=== PATIENT | female | born 1985 | race Caucasian/White ===

== ENCOUNTER → 2018-01-13 12:12 | Outpatient (CLI) | payer MEDICAID, SELFPAY ==
[2018-01-13 13:33] LABS: Free T3 2.6 pg/mL (2.18-3.98); T4 Free Direct 1.04 ng/dL (0.76-1.46)
== END ==
PROVIDERS: Visit Provider Obstetrics & Gynecology
DX: E03.9 Hypothyroidism, unspecified (principal)
CPT/HCPCS: 36415; 84439; 84443; 84481

== ENCOUNTER → 2018-08-14 13:24 | Outpatient (CLI) | payer MEDICAID, SELFPAY ==
[2018-08-20 12:21] LABS: HPV HC, High Risk Negative (Negative)
== END ==
PROVIDERS: Visit Provider Obstetrics & Gynecology
DX: Z12.4 Encounter for screening for malignant neoplasm of cervix (principal)
CPT/HCPCS: 87624; 88175; G0145

== ENCOUNTER 2019-10-11 05:54 | Day surgery (SDC) | payer MEDICAID, SELFPAY ==
[2019-10-04 17:24] LABS: Hematocrit 40.3 % (37-47); Hemoglobin 13.6 g/dL (12.0-15.0); Mean Corp Hgb Conc 33.7 g/dL (32-36); Mean Corpuscular Hgb 29.8 pg (27.0-32.0); Mean Corpuscular Volume 88.4 fL (81-99); Mean Platelet Vol. 10.1 fl (6.2-12.0); Platelet Count 309 K/mm3 (150-450); RBC Distribution Width CV 12.4 % (11.6-14.6); Red Blood Count 4.56 M/mm3 (4.2-5.4); White Blood Count 9.9 K/mm3 (4.4-11.0)
[2019-10-04 17:37] LABS: Prothrombin Time (Protime)PT. 12.9 SECONDS (11.7-14.9)
[2019-10-04 17:38] LABS: Partial Thromboplast Time 26.4 Seconds (24.1-36.2)
[2019-10-04 17:56] LABS: Internal QC Validated? YES +Cl - CLEAR BKGD; Pregnancy, Serum, hCG Quali. NEGATIVE Negative
[2019-10-04 18:00] LABS: Creatinine, Serum 0.81 mg/dL (0.55-1.02); EST Glomerular Filtration Rate 84 mL/min (>60); Est Glom Filt Rate - Afr Amer 102 mL/min (>60)
--- NOTE | 2019-10-09 10:30 | PCM.HP.BLA ---
History and Physical Date of Admission: 10/11/19 Surgical History and Physical Chrystal Beckford, a 34 year old female 1 0 1 1 2, presents for RAVH/BSO on October 11, 2019 at 7:30. -- Severe Pelvic Pain, Endometriosis -- Lower back pain that started after . Use of Roya after 6 mo Lupron for Endometriosis. Pictures that pt gave Dr Fletcher from her cholecystectomy showed her endometriosis. Reports she has had an increase in her pain/discomfort with it being pretty much all the time, instead of just around her menses, and pain with intercourse with a lot of pressure and pain on her (L) side. Had previously taken Ibuprofen 800 mg or Tramadol for the severe pain. MEDICATIONS HISTORY: Current medications prescribed by our practice are: 1. Seasonique 0.15 mg-30 mcg (84)/10 mcg(7) tablets,3 month dose pack, One pill by mouth once a day 2. Synthroid 75 mcg tablet, One pill by mouth once a day 3. tramadol 50 mg tablet, two tabs PO q 6 hours prn for severe pain Patient is also takin. lisinopril 20 mg tablet, One table by mouth once daily 2. metoprolol succinate ER 50 mg tablet,extended release 24 hr, One tablet by mouth once daily ALLERGIES: No Known Drug Allergies Infections - Chicken pox, yeast inf and HX OF ABNORMAL PAPs Illnesses - infertility and thyroid dysfunction Accidents - no injuries of consequence Hospitalizations - see surgery and Childbirth Stage 4 endometriosis; Review of Systems: GENERAL - Denies fever, or chills SKIN - Denies skin changes EYES - Denies visual changes EARS - Denies difficulty hearing NOSE - Denies nasal congestion or bleeding MOUTH - Denies sore throat or difficulty swallowing NECK - Denies pain or swelling RESPIRATORY - Denies shortness of breath or wheezing CARDIOVASCULAR - Denies palpitations or chest pain GASTROINTESTINAL - Denies nausea, vomiting, diarrhea, constipation GENITOURINARY - Denies dysuria, frequency of urination, incontinence of urine MUSCULOSKELETAL - Denies joint or muscle pain NEUROLOGICAL - Denies localized numbness or weakness PSYCHIATRIC - Denies depression or anxiety ENDOCRINE - Denies heat or cold intolerance, weight loss or gain HEMATO-IMMUNOLOGIC - Denies excesive bleeding with cuts SOCIAL HISTORY: Alcohol Use - RARELY Smoking - Never Diet - moderate, balanced diet and caffeine < 2 drinks per day Lifestyle - moderate stress lifestyle and Exercise - none Seat Belt Use - always Employer - Homemaker Illicit Drug Use - denies use of street drugs Sexual Activity - Residence - owns a home and lives with Place of - [place] Hours Worked - 40 hours per week Spouse-Sig Other Name - Tejas Spouse-Sig Other Occupation - [employer]- manager of administration/maintenance Spouse-Sig Other Phone No - [phone] Children Name(s) - David Cortez (twins 01/30/16) Control - [facility] FAMILY HISTORY: la MENSTRUAL HISTORY: LMP Known?- DefiniteAmount/Duration - 3 days, Regularity - spotting, Frequency - 28-30 days, LMP - 08/25/19, Age Onset Menarche - 10 PAST PREGNANCIES: Total Pregnancies - 2; Full Term Pregnancies - 1; Premature - 0; Abortions, Induced - 0; Abortions, Spontaneous - 1; Ectopics - 0; Multiple Births - 1; Living Children - 2 SURGICAL HISTORY: 1. 10/09/2017 Cholecystectomy ; Dr. Agee 2. 12/25/2014 D and C ; - sab 3. 01/31/2015 Laparoscopy ; - explore/clean out endometriosis/drained ovarian cyst 4. 01/30/2016 primary ; Dr Anmol Fletcher PHYSICAL EXAM BP- 134/100 Sitting, Right arm, large cuff Temp- 98.0 Taken Orally Weight- 232.81131 lbs Height- 63 inch BMI:41.18 CONSTITUTIONAL - NAD, well nourished, and well developed SKIN - No rash, lesions, or ulcers HEENT - Normocephalic, PERRLA, EOMI NECK - No nodes, no nuchal rigidity and thyroid normal size and texture LYMPH NODES - Palpation of lymph nodes in neck and groins within normal limits LUNGS - CTA x2 without wheezes, crackles or rales CARDIAC - Regular rate and rhythm without rubs, murmurs, or gallops BREAST - No dominant masses, no tenderness, no axillary adenopathy, no nipple discharge, no skin changes ABDOMEN - Without hepatosplenomegaly, distention, masses, rebound, or guarding; normal bowel sounds; no hernias EXTREMITIES - No edema or calf tenderness NEUROLOGICAL - Cranial nerves II-XII grossly intact PSYCHIATRIC - A and O to time, place, person, mood and affect External Genital Vagina - non-tender without lesions Urethra/Urethral Meatus - non-tender Bladder - non-tender Vagina - vaginal gonzales are pink and moist without loss of rugae and no evidence of atropy Cervix - without cervical motion tenderness and has normal size and features without evident lesions Uterus - 5-6 cm in size, mobile and nontender Adnexa - clear without massess or tenderness ASSESSMENT/PLAN: Endometriosis Of Pelvic Peritoneum Takes occasional tramadol for strong pain. L/S proven endometriosis and failed Lupron now pain nearly entire cycle. Wants to proceed with RAVH/BSO. 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
[2019-10-11] VITALS (14 sets, daily range): BP systolic 99–139; BP diastolic 61–82; PULSE 63–99; RESP 16–18; TEMP 36.6–37; O2SAT 93–99; BMI 41.2
[2019-10-11 06:30] LABS: Internal QC Validated? YES +Cl - CLEAR BKGD; Pregnancy, Urine Negative Negative
[2019-10-11] MEDS: Lactated Ringers 1,000 ML 100 ML IV ×2 (06:52→06:57)
[2019-10-11] MEDS: Ropivacaine 0.5% 30 ML Vial (07:05)
--- NOTE | 2019-10-11 07:30 | HYST_PTH ---
PATIENT: JANELLE ACHARYA LOC: [facility] [place][id number] AGE/SX: 34/F ROOM: RE10/11/[address]: Dr. Tejas Escobedo MD : [id number] BED: DIS: 10/12/2019 SPEC #: [id number] RECD: 10/11/19 10:26 STATUS: NATALIA RONEL #: [id number] EBONY: 10/11/19 07:[address]: Tejas Escobedo DEPT: SURGICAL PATHOLOGY RECD BY: Filippo Tracy ENTERED: 10/11/19 11:16 SP TYPE: HYSTERECT OTHR DR: Jennifer Olivia, CLINICAL PHARMACOLOGIST-C Tissues: Uterus, NOS Procedures: Surgery Specimen Level V HEADER OPERATION: Robotic assisted vaginal hysterectomy, bilateral salpingo PRE-OP DIAGNOSIS: Severe pelvic pain, endometriosis TISSUE SUBMITTED: Uterus, cervix, bilateral fallopian tubes, bilateral ovaries MICROSCOPIC DIAGNOSIS Uterus, hysterectomy: Cervix - nabothian cysts and minimal chronic inflammation. Endometrium - proliferative endometrium. Myometrium - adenomyosis and leiomyoma. Right ovary - follicular and corpus luteal cysts. Left ovary - follicular cysts and corpora albicantia. Right and left fallopian tubes - no pathologic change. AM:marybel 10/12/19 MICROSCOPIC DESCRIPTION Slides are reviewed. GROSS DESCRIPTION Received in fixative is one container labeled with the patient's name and designated uterus. The specimen consists of a uterus with attached cervix and attached right and left fallopian tubes and ovaries. The uterus with cervix measures 8 x 6 x 4 cm and weighs 79.4 gm. The ectocervix is oval in contour and grossly unremarkable. The endocervical canal measures 3.3 cm in length and is grossly unremarkable. The triangular endometrial cavity measures 4 x 3.5 cm. The velvety, light khan endometrium measures up to 0.2 cm in thickness. The myometrium measures 2 cm in average thickness and contains a single rubbery nodule in the anterior wall measuring 0.7 cm in greatest diameter. The right and left ovaries are similar in appearance having crinkled external surfaces. The right ovary measures 3 x 2.5 x 1.5 cm and sections reveal a blood-filled cyst measuring 2.2 cm in greatest diameter. The right and left fallopian tubes are similar in appearance with average lengths of 7 cm and average diameters of 0.8 cm. No tubo-ovarian adhesions are seen. The left ovary measures 3 x 2.5 x 2 cm and contains multiple cysts ranging in size from 0.2 to 0.5 cm and containing clear to bloody fluid. Psychiatric Cns sections are submitted in 11 cassettes as follows: 1 - anterior cervix, 2 - posterior cervix, 3-5 - anterior endometrium/myometrium, 6 & 7 - posterior endometrium/myometrium, 8 & 9 - right ovary and fallopian tube, 10 & 11 - left ovary and fallopian tube. / AM:marybel 10/11/19 TC:1 CPT: 91448
--- NOTE | 2019-10-11 07:37 | PCM.OPRPT ---
Report of Operation Date of Procedure: 10/11/19 Pre-Operative Diagnosis: Severe Pelvic Pain, Endometriosis Post-Operative Diagnosis: Severe Pelvic Pain, Endometriosis, Adhesions Surgery/Procedure Performed:: Robotic Assisted Vaginal Hysterectomy and Bilateral Salpingo-Oophorectomy, Lysis of Adhesions Description of Surgical Findings:: 8 cm uterus with normal-appearing fallopian tubes and ovaries except for a left 4 cm ovarian endometrioma and dense adhesions of the left fallopian tube and ovary to the left pelvic sidewall. Adhesions of the omentum to the anterior abdominal wall and to the right pelvic sidewall. Right fallopian tube and ovary appeared normal except for adhesions of the right ovary to the right pelvic sidewall. global director air and climate change: Rosemarie Herzog Type of Anesthesia:: General - Endotracheal Anesthesiologist: Niles Artis Drains: Garcia to straight drain Estimated Blood Loss (mL): Minimal Fluids Replaced: Crystalloid Description of Procedure: Surgeon: Tejas Escobedo MD, FACOG Indication: This is a 34 year old patient who has been having problems with severe pelvic pain with known endometriosis. Conservative measures have not been helpful. The patient has been counseled regarding the risks, benefits and alternatives of this procedure including the possibility of bleeding, infection, and injury to surrounding structures such as bowel bladder and all questions were answered. She understands that with a BSO she will need to be on HRT for an indefinite period of time. Procedure: Pt taken to the operating room where, after induction of general anesthesia, the patient was prepped and draped in the usual sterile fashion and placed on a non-slip Huggy-u-vac device. Trendelenburg test was satisfactory. Bladder was drained of urine with a Garcia catheter which was left in place. Anterior cervix grasped and cervix was dilated to about 3-4 mm. Uterus sounded to 8 cms. 0-Vicryl suture was placed at the 3:00 and 9:00 position of the cervix. A small Advincula Hyperion Developer Uterine Manipulator was then placed in the uterus and attention was turned to the laparoscopic portion of the procedure. Ropivocaine 0.5% was injected approximately 2-3 cm superior to the umbilicus and an 8 mm robotic camera port was introduced directly with intraperitoneal placement confirmed with CO2 insufflation. 8 mm robotic side ports were introduced under direct visualization approximately 11 cm lateral and 2 cm inferior to the umbilical port. A 5 mm left upper quadrant port was introduced and airseal insufflation with CO2 was started. The above findings were noted. Robot was docked without difficulty and attention turned to the robotic portion of the procedure. Approximately 30 cc of Ropivicaine was used. Omental adhesions were ligated with cautery and scissors and bilateral infundibulopelvic ligaments were ligated with 35 lee bipolar coagulation to the level of the round ligament after freeing up both ovaries and tubes from adhesions both sharply and bluntly. The posterior aspect of the cervix was identified and then opened for about 1 cm using 25 watt monopolar cautery identifying the uterine manipulating device which had been placed vaginally. Bladder flap was opened and divided to the level of the round ligaments using monopolar cautery. Progressive bites were then ligated on each side of the cervix with 35 lee bipolar cautery to the uterine arteries. The anterior vaginal mucosa was entered and cervix circumscribed with monopolar cautery. Uterus and attached tubes and ovaries were removed through the vagina. Vaginal cuff was closed first with 0-Vicryl Nirali stitches placed at each angle followed by closure of the mid-cuff with 0-Monocryl V-lock suture in two layers. Pelvis was copiously irrigated with saline and the right ureter was noted to peristalse. Some Dary was placed across the vaginal cuff to help with postoperative hemostasis due to oozing from the adhesions which had been taken down. Robot was undocked and trocars were removed with as much gas as possible. Incisions were closed with 4-0 Monocryl subcuticular sutures and incisions covered with steri-strips. The patient tolerated the procedure well and was taken to the recovery room in satisfactory condition. Sponge, instruments and needle counts were all correct. There were no apparent complications of the surgery. Cefotan 2 gms IV was given prior to the procedure. Estimated Blood Loss: Minimal Specimen to Pathology: Uterus and bilateral fallopian tubes and ovaries Grafts/Implants Used: None - Complications None - Admit VTE Documentation VTE Present on Admission: Yes VTE Mechan Device Prophylaxis: SCD's VTE Pharm Prophylaxis ordered?: Yes
--- NOTE | 2019-10-11 09:33 | DCINST_ITS ---
Discharge Diet: No Restrictions Discharge Activity: Return to Normal Activity, May Not Drive - while taking narcotic pain medications., May Shower, May Take a Tub Bath May resume sexual activity in: 6-8 weeks Call your doctor if your incision/area has: Continuous Slow Oozing, Sudden Inc reased Bleeding, Increased Pain/ Swelling, Increased Redness, Foul Smelling Discharge Call your doctor if you observe: Fever of 101 or Higher, Inability to urinate, Inability to have a bowel movement, Using more than one pad per hour Additional Instructions: Nothing in the vagina for 6 weeks. Allergies/Adverse Reactions: Allergies No Known Allergies Allergy (Verified 10/11/19 06:26) Medications to take at Discharge levothyroxine 88 mcg tablet 75 mcg PO DAILY tab 10/07/17 Lisinopril [Zestril] 20 mg PO QHS 10/04/19 Metoprolol Succinate [Toprol Xl] 50 mg PO QHS 10/04/19 Venlafaxine XR [Effexor Xr] 150 mg PO QHS 10/04/19 Docusate Sodium [Colace] 100 mg PO BID PRN PRN #60 cap 10/11/19 RX: Estradiol 2 mg PO DAILY #100 tab 10/11/19 RX: Oxycodone [Oxyir] 5 mg PO Q6H PRN PRN 7 Days #14 tab 10/11/19 The following prescriptions were given: Docusate Sodium [Colace] 100 mg PO BID PRN PRN #60 cap PRN Reason: Constipation Transmission [facility] RX: Estradiol 2 mg PO DAILY #100 tab Transmission [facility]: [facility] RX: Oxycodone [Oxyir] 5 mg PO Q6H PRN PRN 7 Days #14 tab PRN Reason: Pain Score 6-10/10 Transmission Status: [facility] Primary Care Physician: Jennifer Olivia NP-C [Primary Care Provider] - Test Results: Test results from this visit will be discussed in further detail at your follow- up appointment, if applicable. Please Follow Up With: Tejas Escobedo MD When: 2 to 3 weeks
[2019-10-11] MEDS: Dextrose 5%-Lactated Ringers 1,000 ML 150 ML IV (11:47)
[2019-10-11] MEDS: HYDROmorphone 1 MG/ML Syringe 0.5 MG IV (12:49)
[2019-10-11] MEDS: oxyCODONE 5 MG Tablet PO ×2 (16:57→21:23)
[2019-10-11] MEDS: Estrogens,Conj. 1.25 MG Tablet PO (16:59)
[2019-10-11] MEDS: Enoxaparin 30 MG/0.3 ML Syringe SC (18:10)
[2019-10-11] MEDS: Ketorolac 30 MG/ML Syringe IV ×2 (18:11→23:41)
[2019-10-11] MEDS: Venlafaxine XR 150 MG Capsule PO (21:24)
[2019-10-11] MEDS: Lisinopril 20 MG Tablet PO (21:24)
[2019-10-11] MEDS: Metoprolol(XL)Succ 50 MG Tablet PO (21:24)
[2019-10-11] MEDS: 0.9% Saline Lock 10 ML Syringe IV (23:44)
[2019-10-12 03:06] VITALS: BP 130/75; PULSE 84; RESP 16; TEMP 36.6; O2SAT 97
[2019-10-12] MEDS: oxyCODONE 5 MG Tablet PO ×2 (03:20→09:49)
[2019-10-12] MEDS: Levothyroxine 75 MCG Tablet PO (05:39)
[2019-10-12] MEDS: Ketorolac 30 MG/ML Syringe IV (05:40)
[2019-10-12] MEDS: 0.9% Saline Lock 10 ML Syringe IV (05:48)
[2019-10-12 07:46] VITALS: O2SAT 96
[2019-10-12 08:05] LABS: Hematocrit 35.4 % (37-47); Hemoglobin 11.5 g/dL (12.0-15.0); Mean Corp Hgb Conc 32.5 g/dL (32-36); Mean Corpuscular Volume 89.4 fL (81-99); Mean Platelet Vol. 10.8 fl (6.2-12.0); Platelet Count 272 K/mm3 (150-450); RBC Distribution Width CV 12.8 % (11.6-14.6); Red Blood Count 3.96 M/mm3 (4.2-5.4); White Blood Count 13.5 K/mm3 (4.4-11.0)
[2019-10-12 08:43] LABS: Creatinine, Serum 0.85 mg/dL (0.55-1.02); EST Glomerular Filtration Rate 81 mL/min (>60); Est Glom Filt Rate - Afr Amer 98 mL/min (>60); Estimated Creatinine Clearance 72.37 ml/min
--- NOTE | 2019-10-12 08:44 | PCM.PN.OB ---
Subjective: Patient without complaints. Tolerating diet well. Positive flatus. Minimal vaginal bleeding. Pain well controlled. Garcia out and voiding on own. - Physical Exam Vitals/I&O's: Vital Signs Temp Pulse Resp BP Pulse Ox 98 F 84 16 130/75 H 96 10/12/19 03:06 10/12/19 03:06 10/12/19 03:06 10/12/19 03:06 10/12/19 07:46 Oxygen Flow Rate (L/min) 1 Oxygen Delivery Method Room Air Weight: 232 lb 12.93 oz Body Mass Index (BMI) 41.2 Intake and Output for Last 24 Hours 10/10/19 10/11/19 10/12/19 23:59 23:59 23:59 Intake Total 3550 / 3550 200 / 200 Output Total 4150 / 4150 700 / 700 Balance -600 / -600 -500 / -500 Comment: Wound CDI. Good urine output. Hemoglobin and creatinine okay. Laboratory Results 10/12/19 06:44: WBC 13.5 H, RBC 3.96 L, Hgb 11.5 L, Hct 35.4 L, MCV 89.4, MCH 29.0, MCHC 32.5, RDW Std Deviation 42.0, RDW Coeff of Oscar 12.8, Plt Count 272, MPV 10.8 10/12/19 06:44: Creatinine 0.85, Estim Creat Clear Calc 72.37, Est GFR (MDRD) Af Amer 98, Est GFR (MDRD) Non-Af 81 Current Medications Docusate Sodium (Colace) 100 mg PO BID PRN PRN PRN Reason: Constipation Estrogens Conjugated (Premarin) 1.25 mg PO DAILY [facility] Last Admin: 10/11/19 16:59 Dose: 1.25 mg Documented by: Hydromorphone HCl (Dilaudid Inj) 0.5 mg IV Q3H PRN PRN PRN Reason: Pain Score 4-10/10 Last Admin: 10/11/19 12:49 Dose: 0.5 mg Documented by: Influenza Virus Vaccine Quadrival (Flucelvax /Fluzone ) 0.5 ml IM .ONCE ONE Stop: 10/12/19 10:01 Ketorolac Tromethamine (Toradol) 30 mg IV Q6H [facility] Stop: 10/16/19 12:01 Last Admin: 10/12/19 05:40 Dose: 30 mg Documented by: Levothyroxine Sodium (Synthroid) 75 mcg PO QAM@0600 [facility] Last Admin: 10/12/19 05:39 Dose: 75 mcg Documented by: Lisinopril (Zestril) 20 mg PO QHS [facility] Last Admin: 10/11/19 21:24 Dose: 20 mg Documented by: Metoprolol Succinate ([facility]rol Xl (Beta Luis)) [facility] Last Admin: 10/11/19 21:24 Dose: 50 mg Documented by: Ondansetron HCl (Zofran) 4 mg IV Q4H PRN PRN PRN Reason: NAUSEA Oxycodone HCl (Oxyir) 5 mg PO Q4H PRN PRN PRN Reason: Pain Score 4-10/10 Last Admin: 10/12/19 03:20 Dose: 5 mg Documented by: Simethicone (Mylicon) 80 mg PO [facility] Last Admin: 10/11/19 21:24 Dose: 80 mg Documented by: Sodium Chloride () 10 - 40 ml IV UD PRN PRN Reason: SALINE FLUSH Last Admin: 10/12/19 05:48 Dose: 10 ml Documented by: Venlafaxine HCl (Effexor Xr) 150 mg [facility] Last Admin: 10/11/19 21:24 Dose: 150 mg Documented by: Medical Necessity - Tobacco Use Smoking Status: Never smoker Tobacco Use: Non-smoker Assessment/Plan Doing well postoperative day #1 status post robotic assisted vaginal hysterectomy and bilateral salpingo-oophorectomy. Will release to home with routine instructions.
[2019-10-12] MEDS: Estrogens,Conj. 1.25 MG Tablet PO (09:08)
[2019-10-12] MEDS: Docusate Sodium 100 MG Capsule PO (09:49)
[2019-10-12 10:00] VITALS: BP 122/69; PULSE 76; RESP 16; TEMP 37.3; O2SAT 97
== END 2019-10-12 08:45 | disposition home or self-care (01) ==
LOC: SDC 05:55 → AC 05:56 → PCU 10-12 09:40
PROVIDERS: Anesthesiology; Family Provider Nurse Practitioner Family; PCP Nurse Practitioner Family; Referring Provider Obstetrics & Gynecology; Visit Provider Obstetrics & Gynecology
PROC: 0UT94ZZ Resection of Uterus, Percutaneous Endoscopic Approach (ICD-10-PCS; CPT 58571; principal; 2019-10-11 07:10)
DX: D25.9 Leiomyoma of uterus, unspecified (principal); N80.3 Endometriosis of pelvic peritoneum; N80.0 Endometriosis of uterus; N83.11 Corpus luteum cyst of right ovary; N83.02 Follicular cyst of left ovary; N88.8 Other specified noninflammatory disorders of cervix uteri; I10 Essential (primary) hypertension; E07.9 Disorder of thyroid, unspecified; F32.9 Major depressive disorder, single episode, unspecified; F41.9 Anxiety disorder, unspecified; Z23 Encounter for immunization; Z79.899 Other long term (current) drug therapy
CPT/HCPCS: 00840; 58571; S2900; 36415; 81025; 82565; 84703; 85027; 85610; 85730; 86850; 86900; 86901; 88307; 99251; J7120; 90686; A4216; G0463; J2405